=== PATIENT | female | born 1940 | race Caucasian/White ===

== ENCOUNTER → 2017-07-21 | Outpatient (CLI) | payer MEDICARE, BC ==
[~2017-07-21] MED LIST: ASPI81CH PO; ATOR40TA PO; Acidophilus La100 GM; Alph-E-Mixed400 UNIT; CALCAVITD PO; CHOL10002; ESTRADIOL1 MG PO; FISH1000 PO; GLUCOSAMINE CH1 EAC1 PO; HYDCHL12.5 PO; LEVSOD100 PO; MAGOXI400 PO; MELA3 PO; METO50ER PO; METRIBP PO; NEXIUM 24HR20 MG PO; Norvasc2.5 MG PO; RESVERATROL250 MG PO; UBID100 PO; VIIBRYD20 MG PO; ZESTRIL40 MG PO
== END | disposition home or self-care (01) ==
LOC: LAB SHORT 13:43 → PLD 13:43
DX: D23.39 Other benign neoplasm of skin of other parts of face (principal)
CPT/HCPCS: 88305

== ENCOUNTER → 2018-05-19 | Outpatient (CLI) | payer MEDICARE, BC ==
[~2018-05-19] MED LIST changes: +Vivelle-Dot1 EAC1
== END | disposition home or self-care (01) ==
LOC: LAB SHORT 17:32 → LAB 17:32
DX: N90.89 Other specified noninflammatory disorders of vulva and perineum (principal)
CPT/HCPCS: 87070; 87205

== ENCOUNTER 2018-06-03 06:07 | Day surgery (SDC) | payer MEDICARE, BC ==
[~2018-06-03] VITALS: Ht 157.5 cm; Wt 68.5 kg
[~2018-06-03 06:07] MED LIST changes: -Vivelle-Dot1 EAC1
[2018-06-03] MEDS ORDERED: Vivelle-Dot1 EAC1 (06:38)
--- NOTE | 2018-06-03 07:58 | NUR ---
06/03/18 0758 Bibiana Lyn REPORT GIVEN TO [facility] AND TRANSFERED CARE.
== END 2018-06-03 08:31 | disposition home or self-care (01) ==
LOC: ORSCSDS 06:07
PROVIDERS: Orthopaedic Surgery
PROC: 01N50ZZ Release Median Nerve, Open Approach (ICD-10-PCS; principal; 2018-06-03 07:30)
DX: G56.02 Carpal tunnel syndrome, left upper limb (principal); I10 Essential (primary) hypertension; K21.9 Gastro-esophageal reflux disease without esophagitis; E03.9 Hypothyroidism, unspecified; Z79.82 Long term (current) use of aspirin; Z79.899 Other long term (current) drug therapy
CPT/HCPCS: J2250; J3010; J7120

== ENCOUNTER → 2018-06-16 | Outpatient (CLI) | payer MEDICARE, BC ==
[~2018-06-16] MED LIST changes: +Vivelle-Dot1 EAC1
== END | disposition home or self-care (01) ==
LOC: LAB SHORT 17:26 → LAB 17:26
DX: N90.89 Other specified noninflammatory disorders of vulva and perineum (principal); N89.8 Other specified noninflammatory disorders of vagina
CPT/HCPCS: 87070; 87205

== ENCOUNTER → 2018-10-26 | Outpatient (CLI) | payer MEDICARE, BC ==
[2018-10-27 14:07] LABS: HPV 16 Negative (Negative); HPV 18 Negative (Negative); HPV OTHER HR TYPES Negative (Negative)
== END | disposition home or self-care (01) ==
LOC: LAB SHORT 12:25 → LAB 12:25
PROVIDERS: Nurse Practitioner Women's Health
DX: Z12.72 Encounter for screening for malignant neoplasm of vagina (principal); Z91.89 Other specified personal risk factors, not elsewhere classified
CPT/HCPCS: 87624; G0123

== ENCOUNTER 2019-07-21 06:12 | Day surgery (SDC) | payer MEDICARE ==
[~2019-07-21] VITALS: Ht 154.9 cm; Wt 69.9 kg
[~2019-07-21 06:12] MED LIST changes: +LEVSOD25 PO; +TOPROL XL25 MG PO; +VAGIFEM10 MCG VAG
== END 2019-07-21 08:22 | disposition home or self-care (01) ==
LOC: ORSCSDS 06:12
PROVIDERS: Orthopaedic Surgery
PROC: 01N50ZZ Release Median Nerve, Open Approach (ICD-10-PCS; principal; 2019-07-21 07:30)
DX: G56.01 Carpal tunnel syndrome, right upper limb (principal); F32.9 Major depressive disorder, single episode, unspecified; I10 Essential (primary) hypertension; E03.9 Hypothyroidism, unspecified; K21.9 Gastro-esophageal reflux disease without esophagitis; E78.00 Pure hypercholesterolemia, unspecified; Z79.899 Other long term (current) drug therapy
CPT/HCPCS: J2250; J2405; J2704; J3010; J7120

== ENCOUNTER → 2020-02-08 | Outpatient (CLI) | payer MEDICARE | END | disposition home or self-care (01) | LOC: PLD 08:39 → LAB SHORT 08:39 | DX: D48.5 Neoplasm of uncertain behavior of skin (principal) | CPT/HCPCS: 88305 ==

== ENCOUNTER 2021-06-12 07:53 | Day surgery (SDC) | payer OTHER ==
[~2021-06-12] VITALS: Ht 154.9 cm; Wt 71.4 kg
[~2021-06-12 07:53] MED LIST changes: +ASPIR 8181 M1 PO; +ESCI10 PO; +OMEP20ER PO; +RED YEAST RICE; +VITAMIN B 12 SL
--- NOTE | 2021-06-12 08:28 | NUR ---
Ambulatory in Day Surgery History, Chart, Medications and Allergies reviewed before start of procedure.Patient confirms NPO status and agrees with scheduled surgery. Patient states colon prep results clear.Lungs clear T/O to Auscultation. Patient States Post-Procedure ride home has been arranged WITH
--- NOTE | 2021-06-12 09:00 | NUR ---
06/12/21 0900 Lisa Smith History, Chart, Medications and Allergies reviewed before start of procedure. Patient confirms NPO status and agrees with scheduled surgery. 3-LEAD EKG REVIEWED WITH PHYSICIAN PRIOR TO START OF PROCEDURE. MONITOR INTACT WITH CONTINUOUS PULSE OXIMETRY AND INTERMITTENT BP. PATIENT DETERMINED TO BE ASA APPROPRIATE FOR PROPOFOL SEDATION PRIOR TO START OF PROCEDURE BY DR. DREW.
--- NOTE | 2021-06-12 10:00 | NUR ---
Discharge instructions reviewed with patient. Patient verbalizes understanding. Copy given to patient to take home. Discharged via wheelchair to private car for ride home.
== END 2021-06-12 10:01 | disposition home or self-care (01) ==
LOC: ORSCMMR 07:53 → ORD 09:00 → ORSCMMR 09:00
PROVIDERS: Internal Medicine Gastroenterology
PROC: 0DBK8ZX Excision of Ascending Colon, Via Natural or Artificial Opening Endoscopic, Diagnostic (ICD-10-PCS; principal; 2021-06-12 09:00)
PROC: 0DBN8ZX Excision of Sigmoid Colon, Via Natural or Artificial Opening Endoscopic, Diagnostic (ICD-10-PCS; principal; 2021-06-12 09:00)
DX: Z12.11 Encounter for screening for malignant neoplasm of colon (principal); Z86.010 Personal history of colon polyps; K63.5 Polyp of colon; D12.2 Benign neoplasm of ascending colon; K57.30 Diverticulosis of large intestine without perforation or abscess without bleeding; I10 Essential (primary) hypertension; K21.9 Gastro-esophageal reflux disease without esophagitis; E78.00 Pure hypercholesterolemia, unspecified; E03.9 Hypothyroidism, unspecified; F41.0 Panic disorder [episodic paroxysmal anxiety]; E66.9 Obesity, unspecified; Z68.30 Body mass index [BMI] 30.0-30.9, adult; Z79.82 Long term (current) use of aspirin; Z79.899 Other long term (current) drug therapy
CPT/HCPCS: 88305; J0461; J2704; J7120

== ENCOUNTER 2025-04-30 09:21 | Emergency (ER) | payer OTHER ==
[~2025-04-30] VITALS: Ht 154.9 cm; Wt 74.8 kg
[~2025-04-30 09:21] MED LIST changes: +ATOR20 PO; +CETI5 PO; +CLOP75 PO; +ESOM20 PO; +LEVSOD75 PO; +Natrol Alpha 3300 MG GT; +OYSTER SHELL 51 EAC2 PO; +PANT20 PO; +Retin-A20 GM TP; +UBID10 PO; +VITAMIN D5000 UNIT PO; +Zovirax Cream 5%2 GM
[2025-04-30] MEDS ORDERED: NS 1,000 ML IV SCH (11:15)
[2025-04-30] MEDS ORDERED: HYDROmorphone HCl/Pf 1MG SYR IV ONE (11:20)
[2025-04-30] MEDS ORDERED: Percocet 5-3251 EACH PO (13:06)
[2025-04-30 13:20] VITALS: BP 150/82
== END 2025-04-30 13:35 | disposition home or self-care (01) ==
LOC: ER 09:21
DX: S82.841A Displaced bimalleolar fracture of right lower leg, initial encounter for closed fracture (principal); W01.0XXA Fall on same level from slipping, tripping and stumbling without subsequent striking against object, initial encounter
CPT/HCPCS: 27810; 73600; 73610; 96374-59; 99283-25; J1171; J7030